=== PATIENT | female | born 1950 | race Caucasian/White ===

== ENCOUNTER 2019-02-27 16:49 | Emergency (ER) | payer OTHER, MEDICAID ==
[~2019-02-27] VITALS: Ht 160 cm; Wt 78.5 kg
[2019-02-27 16:56] VITALS: BP 139/82; Ht 160 cm; Wt 78.5 kg
== END 2019-02-27 22:34 | disposition left against medical advice (07) ==
LOC: ED 16:49
DX: Z53.21 Procedure and treatment not carried out due to patient leaving prior to being seen by health care provider (principal)